=== PATIENT | male | born 1940 | race Caucasian/White ===

== ENCOUNTER 2016-06-29 10:44 | Observation (INO) | payer MEDICARE ==
[~2016-06-29] VITALS: Ht 170.2 cm; Wt 82.0 kg
[~2016-06-29 10:44] MED LIST: ALLO300T2 PO; ALPR0.5T99 PO; ATEN-104 PO; DIOV320T PO; ENAL20TA PO; GLUCTAB PO; VESI5TAB PO
[2016-06-29 10:46] VITALS: BP 180/84; PULSE 69; RESP 16; TEMP 98.3; O2SAT 98
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
[2016-06-29 11:54] LABS: AUTOMATED NEUTROPHIL # 5.5 TH/MM3 (1.8-7.7); BASOPHIL % 0.6 % (0.0-2.0); EOSINOPHIL # 0.2 TH/MM3 (0-0.4); EOSINOPHIL % 2.7 % (0.0-4.0); HEMATOCRIT 38.6 % (39.0-51.0); HEMO FLAGS DIFF FINAL; LYMPH % 14.8 % (9.0-44.0); LYMPHOCYTE # 1.1 TH/MM3 (1.0-4.8); MEAN CELL VOLUME 91.6 FL (80.0-100.0); MEAN CORPUSCULAR HEMOGLOBIN 30.3 PG (27.0-34.0); MEAN CORPUSCULAR HGB CONC 33.1 % (32.0-36.0); MONO % 7.2 % (0.0-8.0); NEUT % 74.7 % (16.0-70.0); PLATELET COUNT 193 TH/MM3 (150-450); RED BLOOD COUNT 4.22 MIL/MM3 (4.50-5.90); RED CELL DISTRIBUTION WIDTH 15.4 % (11.6-17.2); WHITE BLOOD COUNT 7.3 TH/MM3 (4.0-11.0)
[2016-06-29 12:00] LABS: APTT (PATIENT) 26.4 SEC (24.3-30.1); PROTHROMBIN TIME - PATIENT 10.8 SEC (9.8-11.6)
[2016-06-29] MEDS ORDERED: VALS1TAB70 PO (12:02)
[2016-06-29] MEDS ORDERED: DOCU-44 PO (12:02)
[2016-06-29] MEDS ORDERED: COLA100C3 PO (12:02)
[2016-06-29] MEDS ORDERED: TEMA30CA PO (12:02)
[2016-06-29] MEDS ORDERED: METF1000 PO (12:02)
[2016-06-29] MEDS ORDERED: ZOCO20TA PO (12:02)
[2016-06-29] MEDS ORDERED: ATEN50TA PO (12:02)
[2016-06-29] MEDS ORDERED: DILA100C PO (12:02)
[2016-06-29] MEDS ORDERED: TRAZ50TA12 PO (12:02)
[2016-06-29] MEDS ORDERED: ALLO300T2 PO (12:02)
[2016-06-29] MEDS ORDERED: FURO1TAB60 PO (12:02)
[2016-06-29] MEDS ORDERED: PLAV75TA29 PO (12:02)
[2016-06-29] MEDS ORDERED: VESI5TAB PO (12:02)
[2016-06-29] MEDS ORDERED: INSTAFLEX PO (12:02)
[2016-06-29] MEDS ORDERED: MULTTAB23 PO (12:02)
[2016-06-29 12:10] LABS: BICARBONATE 33.5 MEQ/L (21.0-32.0); POTASSIUM 3.8 MEQ/L (3.5-5.1)
[2016-06-29 14:02] VITALS: BP 147/70; PULSE 63; RESP 14; O2SAT 98
[2016-06-29] MEDS ORDERED: SODIUM CHLOR 0.45% 1000 ML INJ 1,000 ML IV SCH (15:05)
[2016-06-29] MEDS ORDERED: SODIUM CHLORIDE 0.9% FLUSH 5 ML FLUSH FLUSH PRN (15:15)
[2016-06-29] MEDS ORDERED: ACETAMINOPHEN 325 MG TAB PO PRN (15:15)
[2016-06-29] MEDS ORDERED: ONDANSETRON HCL 4 MG/2 ML VIAL IVP PRN (15:15)
[2016-06-29] MEDS ORDERED: NALOXONE HCL 0.4 MG/ML AMP IV PRN (15:15)
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
[2016-06-29 16:38] VITALS: BP 169/79; PULSE 61; RESP 18; TEMP 97.9; O2SAT 100
[2016-06-29] MEDS ORDERED: PHENYTOIN SODIUM 100 MG CAP PO SCH (18:00)
[2016-06-29] MEDS ORDERED: PHENYTOIN SODIUM 100 MG CAP PO ONE (18:00)
[2016-06-29 20:15] VITALS: BP_SYST 176; BP_SYST 187; BP_DIAS 90; PULSE 62; RESP 20; TEMP 97.4; O2SAT 97
[2016-06-29] MEDS: PRAVASTATIN SOD 40 MG TAB PO SCH (21:00)
[2016-06-29] MEDS: SODIUM CHLORIDE 0.9% FLUSH 5 ML FLUSH FLUSH SCH (21:00)
[2016-06-29] MEDS: traZODone HCL 50 MG TAB PO SCH (21:00)
[2016-06-29] MEDS: ATENOLOL 50 MG TAB PO SCH (21:00)
--- NOTE | 2016-06-29 21:36 | MB ---
cc: MORE LUKE M.D. DATE OF CONSULTATION: 06/29/2016 REASON FOR CONSULTATION: HISTORY OF PRESENT ILLNESS: The patient is 75 years old. The case was discussed with the ED physician, Dr. Pearce earlier today. The patient describes that yesterday in the morning he was walking his dog and had difficulty walking. He cannot be precise about what happened but his feet were not functioning well. He was not sure if it was both feet or only one. He went back home and stayed in the house. Apparently he talked to his significant other who observed no problems. Today he work up and the problem persisted. Therefore, he came to the hospital. He was driven by the significant other from [place]. The patient has a history of multiple types of cancer. He is just about finished with radiation therapy, whole brain, because of multiple metastatic lesions on the left side of the brain. Indeed he went to have an MRI of the brain at [facility] today and the study reports improvement of the appearance of his multiple enhancing lesions along with improvement in the cerebral edema and no new areas of abnormality discussed on the report. No evidence of acute stroke. The patient tells me about some apparent seizures a month ago and he has been on Dilantin. He follows with a neurologist out of [place], Dr. Ocampo. The patient is apparently taking Dilantin 100 milligrams 3x a day. LABORATORY DATA: His lab work includes a Dilantin level of 9.1, glucose 179, sodium and potassium okay. BUN and creatinine okay. PHYSICAL EXAMINATION: On exam he was alert, pleasant, oriented. Mentation appears adequate. He does have a significantly dysarthric speech, at times a bit difficult to comprehend. There is some associated right facial weakness. He probably has some mild right hemiparesis on the bed side exam. Reflexes brisk on the right and plantar response extensor on the right and equivocal on the left. I did not ambulate the patient. ASSESSMENT/PLAN: Dysarthric speech with some right facial weakness and probable right-sided weakness. He just finished radiation treatment for multiple left hemisphere metastatic lesions, presumably from melanoma. He also has a history of apparent metastases to the lung and history of prostate cancer. History of seizures, and as far as I can gather started recently. His Dilantin level is a bit on the low side. I am intrigued because his MRI today showed actually improvement of the metastatic lesion and no suggestion of acute stroke. Therefore, we might be dealing with a small ischemic cerebrovascular event, not picked up by the MRI. I am going to order a carotid ultrasound. We will order an EEG and I am increasing his Dilantin level, giving him 300 milligrams actual Dilantin now and increasing the dose to 200 milligrams twice a day as an attempt to increase the Dilantin level. We will observe him and see how he progresses. Depending upon his clinical course, we might do a follow up MRI of the brain, MRA studies, etc. Thank you for asking us to assist in his care. I will follow him with you. MD PAT Ta/SERGIO /5:38 PM /9:23 PM
--- NOTE | 2016-06-29 21:41 | EKG ---
Date Performed: 06/29/2016 Time Performed: 10:58:03 PTAGE: 75 years EKG: Sinus rhythm MARKED LEFT AXIS DEVIATION ABNORMAL R WAVE PROGRESSION ABNORMAL ECG PREVIOUS TRACING : 09/13/2012 08.14 Compared to prior tracing no significant change DOCTOR: Nickolas Agarwal Interpretating Date/Time 06/29/2016 21:39:37
--- NOTE | 2016-06-29 22:03 | RADRPT ---
EXAM DATE/TIME: 06/29/2016 21:16 [facility] COMPARISON: No previous studies available for comparison. INDICATIONS : Stroke. MEDICAL HISTORY : Hypertension. CVA. Prostate cancer. Diabetes. Arthritis. Rupturee duodenum. SURGICAL HISTORY : Cataract removal. Abdominal surgery. ENCOUNTER: Initial ACUITY: 1 day PAIN SCORE: 0/10 LOCATION: Bilateral neck PEAK SYSTOLIC VELOCITIES (cm/sec): ICA/CCA RATIO: Right: 0.9 Left: 0.9 ICA: Right: 51 Left: 65 CCA: Right: 56 Left: 69 ECA: Right: 50 Left: 57 VERTEBRAL: Right: 33 antegrade Left: 35 antegrade Elevated flow velocities and ICA/CCA ratios have been found to correlate with increased degrees of vessel stenosis, calculated as percentage of diameter relative to a normal segment of distal ICA/CCA FINDINGS: RIGHT CAROTID: Mild atherosclerotic plaque noted, mainly of the bulb. LEFT CAROTID: Mild atherosclerotic plaque noted, mainly mid CCA and bulb. VERTEBRAL ARTERIES: Antegrade flow is seen in both vertebral arteries. MISCELLANEOUS: None. CONCLUSION: Mild atherosclerotic plaque of both carotids as above. No hemodynamically significant narrowing. Humza Maddox MD on June 29, 2016 at 22:00 Board Certified Radiologist. This report was verified electronically.
[2016-06-29 23:49] VITALS: BP_SYST 159; BP_SYST 185; BP_DIAS 74; BP_DIAS 84; PULSE 70; RESP 20; TEMP 98; O2SAT 95
[2016-06-30 04:03] VITALS: BP 154/77; PULSE 59; RESP 20; TEMP 98; O2SAT 98
[2016-06-30 04:45] LABS: AUTOMATED NEUTROPHIL # 5.2 TH/MM3 (1.8-7.7); BASOPHIL % 0.6 % (0.0-2.0); EOSINOPHIL # 0.2 TH/MM3 (0-0.4); HEMATOCRIT 36.7 % (39.0-51.0); HEMO FLAGS DIFF FINAL; LYMPH % 15.9 % (9.0-44.0); LYMPHOCYTE # 1.2 TH/MM3 (1.0-4.8); MEAN CELL VOLUME 90.1 FL (80.0-100.0); MEAN CORPUSCULAR HEMOGLOBIN 31.6 PG (27.0-34.0); MEAN CORPUSCULAR HGB CONC 35.1 % (32.0-36.0); MONO % 8.7 % (0.0-8.0); NEUT % 71.8 % (16.0-70.0); PLATELET COUNT 186 TH/MM3 (150-450); RED BLOOD COUNT 4.07 MIL/MM3 (4.50-5.90); RED CELL DISTRIBUTION WIDTH 15.2 % (11.6-17.2); WHITE BLOOD COUNT 7.3 TH/MM3 (4.0-11.0)
[2016-06-30 04:46] VITALS: PULSE 48
[2016-06-30 05:15] LABS: BICARBONATE 33.4 MEQ/L (21.0-32.0); POTASSIUM 3.9 MEQ/L (3.5-5.1)
--- NOTE | 2016-06-30 07:21 | HHI.PR ---
Subjective Remarks Patient reports that he is feeling OK this morning. Still having some slurring of speech. He stood up on the side of the bed to urinate. Feels more steady on his feet. Objective Vitals Vital Signs Date Time Temp Pulse Resp B/P Pulse Ox O2 Delivery O2 Flow Rate FiO2 06/30/16 04:46 48 06/30/16 04:03 98.0 59 20 154/77 98 06/29/16 23:49 98.0 70 20 159/74 95 06/29/16 20:15 97.4 62 20 176/90 97 06/29/16 16:38 97.9 61 18 169/79 100 06/29/16 14:02 63 14 147/70 98 Room Air 06/29/16 10:46 98.3 69 16 180/84 98 I/O 06/29/16 06/29/16 06/29/16 06/30/16 06/30/16 06/30/16 07:00 15:00 23:00 07:00 15:00 23:00 Output Total 300 ml 400 ml Balance -300 ml -400 ml Output Urine Total 300 ml 400 ml # Voids 1 Result Diagram: 06/30/16 0416 06/30/16 0416 A/P Problem List: (1) Ataxia ICD Code: R27.0 Status: Acute (2) Metastasis to brain ICD Code: C79.31 Status: Acute (3) Slurring of speech ICD Code: R47.81 Status: Acute (4) Facial droop ICD Code: R29.810 Status: Acute (5) CAD (coronary artery disease) ICD Code: I25.10 Status: Acute (6) Diabetes ICD Code: E11.9 Status: Acute Assessment and Plan 75-year-old male with metastatic brain cancer undergoing radiation therapy presents with ataxia, slurred speech, and facial droop that started yesterday. Ataxia, facial droop, slurred speech: Neurology following. It's possible the patient had a small stroke not picked up by the MRI. Neurology to reevaluate and decide if further imaging may be beneficial. - TSH, B-12, folate all unremarkable -Physical therapy following recommended home health with PT. - Speech therapy recommended mechanical soft diet with chopped meat and gravy. Diabetes: Hold metformin. Continue sliding scale insulin with Accu-Cheks. CAD and HTN: Continue home meds. Rimpel,Ricardy MD Jun 30, 2016 07:21
[2016-06-30 08:00] VITALS: BP 167/80; PULSE 61; RESP 20; TEMP 97.1; O2SAT 95
[2016-06-30] MEDS: MULTIVITAMIN HEMATINIC THERAPEUTIC TAB PO SCH (09:04)
[2016-06-30] MEDS: SODIUM CHLORIDE 0.9% FLUSH 5 ML FLUSH FLUSH SCH ×2 (09:05→22:17)
[2016-06-30] MEDS: CLOPIDOGREL 75 MG TAB PO SCH (09:05)
[2016-06-30] MEDS: ALLOPURINOL 300 MG TAB PO SCH (09:05)
[2016-06-30] MEDS: VALSARTAN 160 MG TAB PO SCH (09:05)
[2016-06-30] MEDS: FUROSEMIDE 40 MG TAB PO SCH (09:05)
[2016-06-30] MEDS: PHENYTOIN SODIUM 100 MG CAP PO SCH ×2 (09:05→22:17)
[2016-06-30] MEDS: TOLTERODINE TARTRATE 2 MG CAP LA PO SCH (09:05)
[2016-06-30] MEDS: ATENOLOL 50 MG TAB PO SCH ×2 (09:06→22:17)
[2016-06-30 12:00] VITALS: BP 147/85; PULSE 66; RESP 20; TEMP 95.9; O2SAT 100
--- NOTE | 2016-06-30 15:08 | MG ---
cc: KRISTI EASON M.D. Lab No: [id number] Date: 06/30/2016 Age: 75 Sex: M Race: REFERRING PHYSICIAN Guillermina. HISTORY: In Room F67 with photic stimulation, awake, drowsy asleep. No imaging admitted for slurring of speech, poor balance, staggering gait, history of prostate, lung cancer, hypertension on Trandate, Pravachol, dilation, atenolol. The Dilantin level yesterday was 30. DESCRIPTION OF RECORD: The patient has an alpha rhythm of 10 Hz 20-40 microvolts, some eye movement muscle artifact but overall seems to be a symmetrical background. Photic stimulation with a posterior driving response. A lot of eye movement towards the end but no epileptic activity. IMPRESSION Overall normal-appearing EEG without any epileptiform features in this one recording. Clinical correlation. MD ERIS Gipson/shelia /2:48 PM /3:01 PM
[2016-06-30 16:00] VITALS: BP 126/58; PULSE 60; RESP 20; TEMP 96.3; O2SAT 97
--- NOTE | 2016-06-30 17:24 | HHI.PR ---
Review/Management Daily Summary 06/30 less dysarthric today and right facial weakness less obvious standing and marching on request doing well overall if stable can go home in am and follow with his neurologist dr Duong or myself will need imaging and clinical neuro follow up Subjective Subjective Comments No acute events reported No headache No chest pain No dyspnea Active Medications Current Medications Medications (Trade) Dose Ordered Sig/Ronit Route Start Time Stop Time Status Last Admin (NS Flush) 2 ml UNSCH PRN FLUSH 06/29/16 15:15 (NS Flush) 2 ml BID FLUSH 06/29/16 21:00 06/30/16 09:05 (Tylenol) 650 mg Q4H PRN PO 06/29/16 15:15 (Zofran Inj) 4 mg Q6H PRN IVP 06/29/16 15:15 (Narcan Inj) 0.4 mg UNSCH PRN IV 06/29/16 15:15 (Zyloprim) 300 mg DAILY PO 06/30/16 09:00 06/30/16 09:05 (Tenormin) 50 mg BID PO 06/29/16 21:00 06/30/16 09:06 (Plavix) 75 mg DAILY PO 06/30/16 09:00 06/30/16 09:05 (Lasix) 40 mg DAILY PO 06/30/16 09:00 06/30/16 09:05 (Theragran Hematinic) 1 tab DAILY PO 06/30/16 09:00 06/30/16 09:04 (Desyrel) 50 mg HS PO 06/29/16 21:00 06/29/16 21:00 (Diovan) 320 mg DAILY PO 06/30/16 09:00 06/30/16 09:05 (Pravachol) 40 mg HS PO 06/29/16 21:00 06/29/16 21:00 (Detrol La) 2 mg DAILY PO 06/30/16 09:00 06/30/16 09:05 (Dilantin) 200 mg BID PO 06/30/16 09:00 06/30/16 09:05 Allergies Allergies Coded Allergies No Known Allergies (Unverified06/29/16) Exam I&O / VS 06/29/16 06/29/16 06/30/16 15:00 23:00 07:00 Output Total 300 ml 400 ml Balance -300 ml -400 ml Output Urine Total 300 ml 400 ml # Voids 1 Vital Signs Date Time Temp Pulse Resp B/P Pulse Ox O2 Delivery O2 Flow Rate FiO2 06/30/16 16:00 96.3 60 20 126/58 97 06/30/16 12:00 95.9 66 20 147/85 100 06/30/16 08:00 97.1 61 20 167/80 95 06/30/16 04:46 48 06/30/16 04:03 98.0 59 20 154/77 98 06/29/16 23:49 98.0 70 20 159/74 95 06/29/16 20:15 97.4 62 20 176/90 97 Objective Radiology Results Last 48 hours Impressions Carotid Artery Ultrasound 06/29/16 0000 Signed Impressions: Service Date/Time: Wednesday, June 29, 2016 21:16 - CONCLUSION: Mild atherosclerotic plaque of both carotids as above. No hemodynamically significant narrowing. Huzma Maddox MD Micro and Labs Laboratory Tests Test 06/30/16 04:16 White Blood Count 7.3 Red Blood Count 4.07 Hemoglobin 12.9 Hematocrit 36.7 Mean Corpuscular Volume 90.1 Mean Corpuscular Hemoglobin 31.6 Mean Corpuscular Hemoglobin 35.1 Concent Red Cell Distribution Width 15.2 Platelet Count 186 Mean Platelet Volume 7.7 Neutrophils (%) (Auto) 71.8 Lymphocytes (%) (Auto) 15.9 Monocytes (%) (Auto) 8.7 Eosinophils (%) (Auto) 3.0 Basophils (%) (Auto) 0.6 Neutrophils # (Auto) 5.2 Lymphocytes # (Auto) 1.2 Monocytes # (Auto) 0.6 Eosinophils # (Auto) 0.2 Basophils # (Auto) 0.0 CBC Comment DIFF FINAL Differential Comment Sodium Level 141 Potassium Level 3.9 Chloride Level 103 Carbon Dioxide Level 33.4 Anion Gap 5 Blood Urea Nitrogen 12 Creatinine 0.91 Estimat Glomerular Filtration 81 Rate Random Glucose 105 Calcium Level 9.2 Taty Sarmiento MD Jun 30, 2016 17:24
[2016-06-30] MEDS: traZODone HCL 50 MG TAB PO SCH (22:17)
[2016-06-30] MEDS: PRAVASTATIN SOD 40 MG TAB PO SCH (22:17)
[2016-07-01 00:18] VITALS: BP 156/76; PULSE 65; RESP 18; TEMP 98.4; O2SAT 99
[2016-07-01 00:38] VITALS: PULSE 65
[2016-07-01] MEDS ORDERED: ATEN50TA PO (07:54)
[2016-07-01] MEDS ORDERED: DILA100C PO (07:54)
--- NOTE | 2016-07-01 07:55 | HHI.DCPOC ---
Discharge Care Plan Diagnosis: (1) Slurring of speech (2) Facial droop (3) Diabetes (4) Ataxia (5) CAD (coronary artery disease) Goals to Promote Your Health * To prevent worsening of your condition and complications * To maintain your health at the optimal level Directions to Meet Your Goals Take your medications as prescribed Follow your dietary instruction Follow activity as directed Keep your appointments as scheduled Take your immunizations and boosters as scheduled If your symptoms worsen call your PCP, if no PCP go to Urgent Care Center or Emergency Room Smoking is Dangerous to Your Health. Avoid second hand smoke Call the 24-hour hour crisis hotline for domestic abuse at Destinee Natarajan MD Jul 01, 2016 07:55
--- NOTE | 2016-07-01 08:00 | HHI.DS ---
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 He reports feeling like a drunk person and his legs are not doing what they are supposed to do. He also admits to some slurring of his speech. He has noticeable right facial droop. The patient reports that his symptoms started yesterday as he was walking his dog. He went to have an MRI of the brain done today for follow-up of his brain cancer and the difficulty walking persisted, therefore he was sent to the emergency room. MRI done a couple hours prior to presentation report no acute infarcts. In fact there has been interval decrease in the multiple enhancing masses within his brain. Areas of vasogenic edema is either decreased or stable. The ED physician discussed the case with the neurologist video control operator who advised observation on telemetry and he will consult on the patient. Currently the patient denies any focal weakness. He denies having any episodes of chest pain or shortness of breath. There has been no change in his vision. CBC/BMP: 06/30/16 0416 06/30/16 0416 Significant Findings Laboratory Tests Test 06/29/16 06/29/16 06/30/16 11:34 11:37 04:16 Red Blood Count 4.22 MIL/MM3 4.07 MIL/MM3 (4.50-5.90) (4.50-5.90) Hemoglobin 12.8 GM/DL 12.9 GM/DL (13.0-17.0) (13.0-17.0) Hematocrit 38.6 % 36.7 % (39.0-51.0) (39.0-51.0) Neutrophils (%) (Auto) 74.7 % 71.8 % (16.0-70.0) (16.0-70.0) Carbon Dioxide Level 33.5 MEQ/L 33.4 MEQ/L (21.0-32.0) (21.0-32.0) Estimat Glomerular Filtration 68 ML/MIN (>89) 81 ML/MIN (>89) Rate Random Glucose 179 MG/DL (74-106) Phenytoin (Dilantin) Level 9.1 MCG/ML (10.0-20.0) Folate GREATER THAN 20.0 NG/ML (3.1-17.5) Monocytes (%) (Auto) 8.7 % (0.0-8.0) Pt update on day of discharge Patient reports that he is feeling better. He is walking better. Dysarthria improving. Facial droop improving as well. Hospital Course 75-year-old male with metastatic brain cancer undergoing radiation therapy presents with ataxia, slurred speech, and facial droop that started the day prior to admission. The patient had an MRI the morning of admission with no acute infarcts. He was followed by neurology. His symptoms improved. Per neurologist recommendation, he will follow-up outpatient with neurology to have repeat imaging. He is to continue on Plavix and his chronic home medications. He is Dilantin for seizure prophylaxis was increased per neurology. TSH, B-12, folate were all unremarkable. Patient was evaluated by physical therapy recommended home physical therapy. He is discharged with home health and physical therapy. Diabetes: Patient to resume home medications. CAD and HTN: Continue home meds. Pt Condition on Discharge: Good Discharge Disposition: Disch w/ Home Health Serv Discharge Time: <= 30 minutes Discharge Instructions DIET: Follow Instructions for: Heart Healthy Diet Speech Therapy-Diet Recommends: Mechanical Soft, Chopped Meat w/Gravy Activities you can perform: See Additionl Instruction Other Activity Instructions: Per PT instructions. Follow up Referrals: Neurology - [address] Duong Changed Medications: Atenolol (Atenolol) 50 Mg Tab 50 MG PO DAILY Blood Pressure Management #30 Ref 0 TAB (Changed from: BID; 14) Phenytoin Extended (Dilantin) 100 Mg Cap 200 MG PO BID Control Seizures #120 Ref 0 CAP (Changed from: 100 MG; TID; 90) Continued Medications: Allopurinol (Allopurinol) 300 Mg Tab 300 MG PO DAILY Gout #30 Ref 0 TAB Clopidogrel (Plavix) 75 Mg Tab 75 MG PO DAILY Blood Clot Prevention #30 Ref 0 TAB Docusate Sodium (Colace) 100 Mg Cap 100 MG PO BID PRN Constipation #60 Ref 0 CAP Docusate Sodium ([place] Stool Softener) 100 Mg Cap 2-4 CAP PO HS Furosemide (Lasix) 40 Mg Tab 40 MG PO DAILY #30 Ref 0 TAB Metformin (Metformin) 1,000 Mg Tab 1000 MG PO BID With meals Blood Sugar Management #60 Ref 0 TAB Multiple Vitamins W/ Minerals (Multi For Him 50+) 1 Tab Tab 1 TAB PO DAILY Simvastatin (Zocor) 20 Mg Tab 20 MG PO HS Cholesterol Management #30 Ref 0 TAB Solifenacin (Vesicare) 5 Mg Tab 5 MG PO DAILY Urinary Symptom Managemen #30 Ref 0 TAB Temazepam (Temazepam) 30 Mg Cap 30 MG PO HS PRN INSOMNIA #30 Ref 0 CAP Trazodone (Trazodone) 50 Mg Tab 50 MG PO HS Control Depression #30 Ref 0 TAB Valsartan (Valsartan) 320 Mg Tab 320 MG PO DAILY #30 Ref 0 TAB ([Instaflex]) 3 CAP PO DAILY Destinee Natarajan MD Jul 01, 2016 08:00
--- NOTE | 2016-07-01 08:01 | HHI.FF ---
Face to Face Verification Diagnosis: (1) Ataxia (2) Facial droop (3) Diabetes (4) CAD (coronary artery disease) (5) Metastasis to brain Physical Therapy Order: Evaluate and Treat, Improve ambulation, Strength and gait training Home Health Nursing Order: Medical education Medication education-adverse effect Nursing assessment with vital signs I have seen patient Hayden Sanches on 07/01/16. My clinical findings support the need for the requested home health care services because: High risk of falls I certify that my clinical findings support that this patient is homebound because: Unsteady gait/balance Destinee Natarajan MD Jul 01, 2016 08:01
[2016-07-01] MEDS: SODIUM CHLORIDE 0.9% FLUSH 5 ML FLUSH FLUSH SCH (08:04)
[2016-07-01] MEDS: ATENOLOL 50 MG TAB PO SCH (08:05)
[2016-07-01] MEDS: TOLTERODINE TARTRATE 2 MG CAP LA PO SCH (08:06)
[2016-07-01] MEDS: PHENYTOIN SODIUM 100 MG CAP PO SCH (08:06)
[2016-07-01] MEDS: VALSARTAN 160 MG TAB PO SCH (08:07)
[2016-07-01] MEDS: ALLOPURINOL 300 MG TAB PO SCH (08:07)
[2016-07-01] MEDS: FUROSEMIDE 40 MG TAB PO SCH (08:07)
[2016-07-01] MEDS: CLOPIDOGREL 75 MG TAB PO SCH (08:07)
[2016-07-01] MEDS: MULTIVITAMIN HEMATINIC THERAPEUTIC TAB PO SCH (08:07)
[2016-07-01 08:27] VITALS: BP 152/72; PULSE 65; RESP 16; TEMP 95.7; O2SAT 100
== END 2016-07-01 12:16 | disposition home or self-care (01) ==
LOC: NEPA 10:44 → NEDA 14:41 → NEPFCDU 16:17
PROVIDERS: ADMIT Family Medicine; ATTEND Family Medicine
DX: R27.0 Ataxia, unspecified (principal); R29.810 Facial weakness; I63.9 Cerebral infarction, unspecified; C79.31 Secondary malignant neoplasm of brain; Z92.3 Personal history of irradiation; Z86.73 Personal history of transient ischemic attack (TIA), and cerebral infarction without residual deficits; E11.9 Type 2 diabetes mellitus without complications; K31.89 Other diseases of stomach and duodenum; Z85.46 Personal history of malignant neoplasm of prostate; I10 Essential (primary) hypertension; J44.9 Chronic obstructive pulmonary disease, unspecified; Z79.899 Other long term (current) drug therapy; Z79.01 Long term (current) use of anticoagulants; G93.6 Cerebral edema; Z85.820 Personal history of malignant melanoma of skin; I25.10 Atherosclerotic heart disease of native coronary artery without angina pectoris; Z79.84 Long term (current) use of oral hypoglycemic drugs; R56.9 Unspecified convulsions; R47.1 Dysarthria and anarthria
CPT/HCPCS: 80048; 80185; 82607; 82746; 84443; 85025; 85610; 85730; 92610; 93005; 93880; 95819; 97110; 97116; 97163; 99285; G0378; G8987; G8988; G8996; G8997; G8998

== ENCOUNTER 2016-08-13 15:27 | Emergency (ER) | payer MEDICARE ==
[~2016-08-13 15:27] MED LIST changes: -ALPR0.5T99 PO; -ATEN-104 PO; +ATEN50TA PO; +COLA100C3 PO; +DILA100C PO; -DIOV320T PO; +DOCU-44 PO; -ENAL20TA PO; +FURO1TAB60 PO; -GLUCTAB PO; +INSTAFLEX PO; +METF1000 PO; +MULTTAB23 PO; +PLAV75TA29 PO; +TEMA30CA PO; +TRAZ50TA12 PO; +VALS1TAB70 PO; +ZOCO20TA PO
[2016-08-13 15:29] VITALS: BP 156/74; PULSE 68; RESP 20; TEMP 98.5; O2SAT 96
[2016-08-13] MEDS ORDERED: SODIUM CHLOR 0.9% 1000 ML INJ 1,000 ML IV ONE (16:00)
[2016-08-13 16:01] VITALS: O2SAT 97
[2016-08-13 16:38] LABS: AUTOMATED NEUTROPHIL # 7.7 TH/MM3 (1.8-7.7); BASOPHIL % 0.2 % (0.0-2.0); EOSINOPHIL # 0.1 TH/MM3 (0-0.4); EOSINOPHIL % 0.8 % (0.0-4.0); HEMO FLAGS DIFF FINAL; LYMPHOCYTE # 0.9 TH/MM3 (1.0-4.8); MEAN CELL VOLUME 89.9 FL (80.0-100.0); MEAN CORPUSCULAR HEMOGLOBIN 31.5 PG (27.0-34.0); MONO % 16.1 % (0.0-8.0); NEUT % 73.9 % (16.0-70.0); PLATELET COUNT 298 TH/MM3 (150-450); RED BLOOD COUNT 3.78 MIL/MM3 (4.50-5.90); RED CELL DISTRIBUTION WIDTH 15.2 % (11.6-17.2); WHITE BLOOD COUNT 10.5 TH/MM3 (4.0-11.0)
[2016-08-13] MEDS ORDERED: ATEN50TA PO (16:40)
[2016-08-13] MEDS ORDERED: DILA100C PO (16:42)
[2016-08-13 16:49] LABS: APTT (PATIENT) 64.3 SEC (24.3-30.1); INTERNATIONAL NORMALIZED RATIO 1.1 RATIO
--- NOTE | 2016-08-13 17:09 | RADRPT ---
EXAM DATE/TIME: 08/13/2016 16:03 [facility] COMPARISON: No previous studies available for comparison. INDICATIONS : Short of breath. Weakness. MEDICAL HISTORY : Hypertension. Former smoker. Prostate cancer. Diabetes. SURGICAL HISTORY : Cataract removal. Abdominal surgery. ENCOUNTER: Initial ACUITY: 1 day PAIN SCORE: 0/10 LOCATION: Bilateral chest FINDINGS: A single view of the chest demonstrates the lungs to be symmetrically aerated without evidence of mas s, infiltrate or effusion. The cardiomediastinal contours are unremarkable. Osseous structures are intact. There is a right-sided [id number] in place. There surgical clips in the right axilla. CONCLUSION: No acute disease. Milton Magdaleno MD on August 13, 2016 at 17:08 Board Certified Radiologist. This report was verified electronically.
[2016-08-13 17:23] LABS: ALT (GPT) 20 U/L (12-78); ANION GAP 8 MEQ/L (5-15); AST (GOT) 12 U/L (15-37); BICARBONATE 30.3 MEQ/L (21.0-32.0); BLOOD UREA NITROGEN 35 MG/DL (7-18); CHLORIDE 105 MEQ/L (98-107); GLOMERULAR FILTRATION RATE 61 ML/MIN (>89); POTASSIUM 3.3 MEQ/L (3.5-5.1); SODIUM (NA) 143 MEQ/L (136-145)
[2016-08-13 17:25] LABS: ALKALINE PHOSPHATASE 114 U/L (45-117); TOTAL BILIRUBIN ADULT 0.3 MG/DL (0.2-1.0)
[2016-08-13 17:30] VITALS: BP 160/84; PULSE 89; RESP 18; O2SAT 98
[2016-08-13 18:07] VITALS: BP 153/72; PULSE 84; RESP 18; O2SAT 99
[2016-08-13 18:21] LABS: BLOOD, URINE NEG (NEG); COMMENT (UR) CULT NOT INDICATED; CULTURE IF INDICATED CULT NOT INDICATED; GLUCOSE,URINE NEG (NEG); KETONE, URINE NEG (NEG); MUCUS URINE FEW /lpf (OCC); NITRITE,URINE NEG (NEG); URINE COLOR LIGHT-YELLOW (YELLW/STRAW)
[2016-08-13] MEDS ORDERED: LOMO2.5T PO (18:44)
--- NOTE | 2016-08-13 18:44 | PD ---
HPI Chief Complaint: GI Complaint Time Seen by Provider: 15:54 Travel History International Travel<30 days: No Contact w/Intl Traveler<30days: No Traveled to known affect area: No History of Present Illness HPI 75-year-old male complains of persistent diarrhea. Patient states that the diarrhea started a week ago and has been persistent since then. Patient states that he has about 3 loose stool per day. Patient has been taking Lomotil without much relief. Patient denies any headache. Patient denies any chest pain or shortness of breath. Patient denies abdominal pain. Patient denies any focal weakness and numbness of extremity. Denies any fever chills. Patient recently was in contact with her admissions officer who has C. difficile. Patient has history of prostate cancer, malignant melanoma. Patient has metastasis to the lung and also the brain. Patient underwent stereotactic radiation treatment for the brain lesions. Patient is on chemotherapy. Last chemotherapy treatment on July 2017. Patient states that he developed diarrhea since then. Patient denies any blood or mucus in the stool. PFSH Past Medical History Blood Disorders: No Heart Rhythm Problems: No Cancer: Yes Cardiovascular Problems: Yes (STENT) High Cholesterol: No Chemotherapy: Yes Chest Pain: No Congestive Heart Failure: No Cerebrovascular Accident: Yes (STROKE WITH FACIAL, VERBAL AND MUSCULOSKELETAL ) Diabetes: Yes Patient Takes Glucophage: Yes Endocrine: Yes Gastrointestinal Disorders: Yes (ruptured duodenum) Genitourinary: Yes (PROSTATE CANCER) Hepatitis: No Hiatal Hernia: No Hypertension: Yes Immune Disorder: No Implanted Vascular Access Dvce: Yes Medical other: No Musculoskeletal: Yes (ARTHRITIS) Neurologic: Yes (CVA) Psychiatric: No Reproductive: No Respiratory: No Radiation Therapy: Yes Thyroid Disease: No Past Surgical History Abdominal Surgery: Yes AICD: No Body Medical Devices: MEDPORT RT Cardiac Surgery: No Ear Surgery: No Endocrine Surgery: No Eye Surgery: Yes (cataracts) Genitourinary Surgery: No Gynecologic Surgery: No Joint Replacement: No Neurologic Surgery: No Pacemaker: No Thoracic Surgery: No Other Surgery: Yes (NODE OFF RIGHT ARM) Social History Alcohol Use: Yes Tobacco Use: No Substance Use: No Allergies-Medications (Allergen,Severity, Reaction): Coded Allergies: Keppra (Verified Allergy, Unknown, 08/13/16) Reported Meds & Prescriptions Reported Meds & Active Scripts Active Reported Dilantin (Phenytoin Extended) 100 Mg Cap 100 Mg PO TID Atenolol 50 Mg Tab 50 Mg PO BID Metformin (Metformin HCl) 1,000 Mg Tab 1,000 Mg PO BID With meals Zocor (Simvastatin) 20 Mg Tab 20 Mg PO HS Plavix (Clopidogrel Bisulfate) 75 Mg Tab 75 Mg PO DAILY Allopurinol 300 Mg Tab 300 Mg PO DAILY Lasix (Furosemide) 40 Mg Tab 40 Mg PO DAILY Multi For Him 50+ (Multiple Vitamins W/ Minerals) 1 Tab Tab 1 Tab PO DAILY [Instaflex] 3 Cap PO DAILY Trazodone (Trazodone HCl) 50 Mg Tab 50 Mg PO HS Valsartan 320 Mg Tab 320 Mg PO DAILY Colace (Docusate Sodium) 100 Mg Cap 100 Mg PO BID PRN Vesicare (Solifenacin) 5 Mg Tab 5 Mg PO DAILY Review of Systems General / Constitutional: No: Fever Eyes: No: Visual changes HENT: No: Headaches Cardiovascular: No: Chest Pain or Discomfort Respiratory: No: Shortness of Breath Gastrointestinal: Positive: Diarrhea, No: Abdominal Pain Genitourinary: No: Dysuria Musculoskeletal: No: Pain Skin: No Rash Neurologic: No: Weakness Psychiatric: No: Depression Endocrine: No: Polydipsia Hematologic/Lymphatic: No: Easy Bruising Physical Exam Narrative GENERAL: Well-nourished, well-developed patient. SKIN: Focused skin assessment warm/dry. HEAD: Normocephalic. EYES: No scleral icterus. No injection or drainage. NECK: Supple, trachea midline. No JVD or lymphadenopathy. CARDIOVASCULAR: Regular rate and rhythm without murmurs, gallops, or rubs. RESPIRATORY: Breath sounds equal bilaterally. No accessory muscle use. GASTROINTESTINAL: Abdomen soft, non-tender, nondistended. MUSCULOSKELETAL: No cyanosis, or edema. BACK: Nontender without obvious deformity. No CVA tenderness. Neurologic exam normal. Data Data Last Documented VS Vital Signs Date Time Temp Pulse Resp B/P Pulse Ox O2 Delivery O2 Flow Rate FiO2 08/13/16 18:07 84 18 153/72 99 Room Air 08/13/16 16:01 2 08/13/16 15:29 98.5 Orders Complete Blood Count With Diff (08/13/16 15:55) Comprehensive Metabolic Panel (08/13/16 15:55) Prothrombin Time / Inr (Pt) (08/13/16 15:55) Act Partial Throm Time (Ptt) (08/13/16 15:55) Lipase (08/13/16 15:55) Urinalysis - C+S If Indicated (08/13/16 15:55) Chest, Single Ap (08/13/16 15:55) Iv Access Insert/Monitor (08/13/16 15:55) Ecg Monitoring (08/13/16 15:55) Oximetry (08/13/16 15:55) Sodium Chlor 0.9% 1000 Ml Inj (Ns 1000 M (08/13/16 16:00) Labs Laboratory Tests Test 08/13/16 08/13/16 16:22 17:28 White Blood Count 10.5 TH/MM3 Red Blood Count 3.78 MIL/MM3 Hemoglobin 11.9 GM/DL Hematocrit 34.0 % Mean Corpuscular Volume 89.9 FL Mean Corpuscular Hemoglobin 31.5 PG Mean Corpuscular Hemoglobin 35.0 % Concent Red Cell Distribution Width 15.2 % Platelet Count 298 TH/MM3 Mean Platelet Volume 8.7 FL Neutrophils (%) (Auto) 73.9 % Lymphocytes (%) (Auto) 9.0 % Monocytes (%) (Auto) 16.1 % Eosinophils (%) (Auto) 0.8 % Basophils (%) (Auto) 0.2 % Neutrophils # (Auto) 7.7 TH/MM3 Lymphocytes # (Auto) 0.9 TH/MM3 Monocytes # (Auto) 1.7 TH/MM3 Eosinophils # (Auto) 0.1 TH/MM3 Basophils # (Auto) 0.0 TH/MM3 CBC Comment DIFF FINAL Differential Comment Prothrombin Time 12.0 SEC Prothromb Time International 1.1 RATIO Ratio Activated Partial 64.3 SEC Thromboplast Time Sodium Level 143 MEQ/L Potassium Level 3.3 MEQ/L Chloride Level 105 MEQ/L Carbon Dioxide Level 30.3 MEQ/L Anion Gap 8 MEQ/L Blood Urea Nitrogen 35 MG/DL Creatinine 1.17 MG/DL Estimat Glomerular Filtration 61 ML/MIN Rate Random Glucose 180 MG/DL Calcium Level 9.3 MG/DL Total Bilirubin 0.3 MG/DL Aspartate Amino Transf 12 U/L (AST/SGOT) Alanine Aminotransferase 20 U/L (ALT/SGPT) Alkaline Phosphatase 114 U/L Total Protein 6.2 GM/DL Albumin 2.7 GM/DL Lipase 65 U/L Urine Color LIGHT-YELLOW Urine Turbidity CLEAR Urine pH 5.0 Urine Specific [place] 1.008 Urine Protein NEG mg/dL Urine Glucose (UA) NEG mg/dL Urine Ketones NEG mg/dL Urine Occult Blood NEG Urine Nitrite NEG Urine Bilirubin NEG Urine Urobilinogen LESS THAN 2.0 MG/DL Urine Leukocyte Esterase NEG Urine RBC LESS THAN 1 /hpf Urine WBC 1 /hpf Urine Mucus FEW /lpf Microscopic Urinalysis Comment CULT NOT INDICATED MDM Medical Decision Making Medical Screen Exam Complete: Yes Emergency Medical Condition: Yes Interpretation(s) 1836 PM. Last Impressions Chest X-Ray 08/13/16 1555 Signed Impressions: Service Date/Time: Saturday, August 13, 2016 16:03 - CONCLUSION: No acute disease. Milton Magdaleno MD 1836 PM. CBC within normal limit. Potassium 3.3. BUN 35. UA is negative. Differential Diagnosis Differential diagnosis including gastroenteritis, C. difficile colitis, side effect of chemotherapy, dehydration, electrolyte imbalance. Narrative Course 75-year-old male with diarrhea after chemotherapy. History of prostate cancer, malignant melanoma with metastases. Diagnosis Primary Impression: Gastroenteritis due to antineoplastic chemotherapy Patient Instructions: General Instructions Additional Instructions: Continue with Lomotil as directed. Follow-up with personal physician. Return if worse. Patient may need steroid if persistent diarrhea. Med/Other Pt SpecificInfo: Prescription(s) given Scripts Diphenoxylate-Atropine (Lomotil)2.5-0.025 Mg Tab1 Tab PO Q6H PRN (DIARRHEA) #20 TAB Ref 0 Prov:Marc Rose MD 08/13/16 Disposition: 01 DISCHARGE HOME Condition: Stable Marc Rose MD Aug 13, 2016 18:44
== END 2016-08-13 19:14 | disposition home or self-care (01) ==
LOC: NEPC 15:27
DX: K52.1 Toxic gastroenteritis and colitis (principal); T45.1X5A Adverse effect of antineoplastic and immunosuppressive drugs, initial encounter; C43.9 Malignant melanoma of skin, unspecified; C61 Malignant neoplasm of prostate; C78.00 Secondary malignant neoplasm of unspecified lung; C79.31 Secondary malignant neoplasm of brain
CPT/HCPCS: 71010; 80053; 81001; 83690; 85025; 85610; 85730; 96360; 99284; J1642; J7030